=== PATIENT | female | born 2000 | race Caucasian/White ===

== ENCOUNTER 2023-08-03 05:30 | Emergency (ER) | payer OTHER, SELFPAY ==
[2023-08-03 05:42] VITALS: BP 136/75; PULSE 92; RESP 16; TEMP 36.6; O2SAT 100; BMI 18.9
--- NOTE | 2023-08-03 05:44 | ED_ITS ---
HPI - General Adult General Chief complaint: Abdominal Pain Stated complaint: abd pain Time Seen by Provider: 08/03/23 05:44 History of Present Illness HPI narrative: 23-year-old woman with a history of tachycardia for which she takes a beta- booker daily presents with 4 days of left lower quadrant/pelvic pain. Over the last 2 days she is had waves of colicky type pain that has been described as a 07/28. She would another similar episode this morning that resolved shortly prior to arrival in the emergency department. She has a Nexplanon implant so has somewhat irregular menses. Has not had a period recently. She is not having dysuria. She notes slight increase in white vaginal non odorous discharge. She describes no vaginal itching. Low risk for sexually transmitted infections. Pain is not influenced after a bowel movement. She is not been vomiting. She is not complaining specifically of upper abdominal or flank pain. Related Data Allergies Allergy/AdvReac Type Severity Reaction Status Date / Time No Known Drug Allergies Allergy Verified 08/03/23 05:47 Review of Systems Review of Systems Narrative: Pertinent positive and negative findings as per HPI Patient History Medical History (Updated 08/03/23 @ 06:47 by Adela Howell MD) Tachycardia Exam Initial Vital Signs Initial Vital Signs: General: Healthy appearing, in no acute distress. Able to give a complete and coherent history. Well-nourished well-developed HEENT: Moist mucous membranes, normal sclera with reactive pupils, Respiratory: Lungs are clear to auscultation, no wheezing no rales no rhonchi. Full and symmetrical air movement Cardiac: Regular rate and rhythm no murmurs no bruits Abdomen: Soft, slightly tender in the left lower quadrant without rebound or guarding, good bowel tones, no flank pain Pelvic exam: Normal external genitalia, no abnormal vesicles, irritation or obvious vaginal discharge. No tenderness at the vaginal introitus. Midposition 6 week size uterus with normal adnexa bilaterally she has no cervical motion tenderness. Skin: Warm and dry, no rashes Psych: Cooperative, appropriate insight and affect Medical Decision Making [facility] Narrative Medical decision making narrative: CC: Left lower quadrant/pelvic pain Complicating co-morbidities: History of tachycardia Data collected from: patient, Differential considered: Sexually transmitted infection, yeast infection, urinary tract infection, pyelonephritis, nephrolithiasis, pelvic inflammatory disease, ovarian cyst Exam documented above, pertinent findings include: Unremarkable exam this morning. No cervical motion tenderness minimal vaginal discharge slight te nderness in the left lower quadrant without rebound or guarding Lab Test results independently reviewed as above. Pertinent findings: CBC is unremarkable Chemistries are reassuring Urine dip is unremarkable Urine test is negative Imaging studies independently reviewed: CT KUB shows normal kidneys and uterus. 4.8 x 3.2 x 3.5 left ovarian cyst that is described as a modestly hypodense, noncalcified, well-circumscribed smoothly marginated structure, minimal free fluid. Also notable amount of stool throughout the colon US: left ovarian cyst with no evidence torsion. No significant free fluid. Re-evaluations: On re-evaluation pain is adequately controlled at this point. She did take 3 [id number] Aleve just prior to arrival which clearly has been effective. Discussion: 23-year-old woman with intermittent left pelvic/adnexal pain for the last week. She has a 5 cm ovarian cyst she does have a Nexplanon in place. Does not appear to be a complex cyst nor does it appear ruptured and there is no evidence of ovarian torsion. Will discharge her home and have her follow-up with OBGYN. Discussed continued use of Aleve as needed. She declines any narcotics. She recognizes the need for MiraLax dosing when she gets home today. Questions are answered and she is safe for discharge Discharge Plan Departure Patient Disposition: Home Clinical Impression: Ovarian cyst Qualifiers: Laterality: left Qualified Code(s): N83.202 - Unspecified ovarian cyst, left side Constipation Qualifiers: Constipation type: unspecified constipation type Qualified Code(s): K59.00 - Constipation, unspecified Instructions: DI for Ovarian Cyst, DI for Constipation Activity Restrictions/Additional Instructions: Thank you for coming in today You have a almost 5 cm left ovarian cyst that I believe is causing your pain. It is not a complicated cyst, there is no evidence of bleeding or cyst rupture. There is no evidence of the ovary twisting on itself and losing blood flow. Treatment for this is nonsteroidals. As you have had luck with using a leave I would recommend to leave in the morning to leave at night and Tylenol during the day if you have additional pain. Frequently ovarian cysts will resolve spontaneously. I am going to recommend that you contact our OBGYN clinic the phone number is [phone] explain that you are in the emergency department diagnosed with an ovarian cyst and need follow-up appointment within the next few weeks. You do have a fairly significant amount of stool noted on the CT scan. I would recommend MiraLax for the next couple of days. If you find that you are getting worse or develop any new symptoms, please feel free to return to the emergency department for further evaluation. Referrals: ProviderAbimael [Primary Care Provider] - Stand Alone Forms: Patient Portal/API
--- NOTE | 2023-08-03 05:58 | DI.CT.S_ITS ---
PROCEDURE: CT KIDNEY URETER BLADDER (KUB) INDICATIONS: left pelvic/LLQ pain, TECHNIQUE: Axial sections were acquired from the lung bases to the pubic symphysis. Coronal and sagittal reformats were performed. For radiation dose reduction, the following was used: automated exposure control, adjustment of mA and/or kV according to patient size. COMPARISON: None. FINDINGS: Image quality: Excellent. Lung bases: Unremarkable. Heart: No significant findings. URINARY: Right Kidney: No stones or hydronephrosis. Right Ureter: No hydroureter. Left Kidney: No stones or hydronephrosis. Left Ureter: No hydroureter. Bladder: Normal wall thickness. No stones. ABDOMEN: Liver: Unremarkable. Gallbladder: Unremarkable. Biliary ducts: Unremarkable. Pancreas: Unremarkable. Spleen: Unremarkable. Adrenal Glands: Unremarkable. Stomach and Bowel: Stomach, small bowel loops, and colon are unremarkable. Peritoneum: No abnormal intraperitoneal fluid. No free air. Ventral Wall: No hernia. Abdominal Nodes: No enlarged retroperitoneal or mesenteric lymph nodes. Vessels: Aorta and inferior vena cava are normal in size. PELVIS: Pelvic Organs: Left ovarian cystic lesion measuring 5.3 x 3.5 centimeters. Pelvic Nodes: Unremarkable. Miscellaneous: No inguinal hernias are seen. Bones: Unremarkable. IMPRESSION: Left ovarian cystic lesion measuring 3.5 x 5.3 centimeters. Given left lower quadrant pain, recommend pelvic ultrasound. Agree with preliminary report. Dictated by: Haroldo Flor M.D. on 08/03/2023 at 8:05 Approved by: Haroldo Flor M.D. on 08/03/2023 at 8:12
[2023-08-03 06:09] LABS: Add Manual Diff / Slide Review NO; Basophils Absolute Auto 100 /uL (0-100); Basophils Percent Auto 0.5 % (0-2); Eosinophils Absolute Auto 200 /uL (0-450); Eosinophils Percent Auto 1.5 % (2-4); Hematocrit 42.1 % (36-46); Hemoglobin 14.4 g/dL (12.0-16.0); Lymphocytes Absolute Auto 4300 /uL (1100-4500); Lymphocytes Percent Auto 39.4 % (25-40); Mean Corpuscular HGB Conc 34.1 % (30-36); Monocytes Absolute Auto 700 /uL (0-900); Monocytes Percent Auto 6.4 % (3-14); Neutrophils Absolute Auto 5700 /uL (1500-7000); Neutrophils Percent Auto 52.2 % (50-75); Platelet Count 264 X10^3/uL (150-400); Red Blood Cell Count 4.78 X10^6/uL (4.0-5.2); Red Cell Distribution Width 13.7 % (11.6-14.8); White Blood Cell Count 10.9 X10^3/uL (4.5-11.0)
[2023-08-03 06:28] LABS: Alanine Aminotransferase 19 IU/L (<35); Albumin 4.6 g/dL (3.5-5.0); Albumin Globulin Ratio 1.6 (1.0-2.8); Alkaline Phosphatase 54 U/L (38-126); Aspartate Aminotransferase 32 IU/L (14-36); BUN Creatinine Ratio 12.5 (6-22); Bilirubin Total 0.5 mg/dL (0.2-1.3); Blood Urea Nitrogen 8 mg/dL (7-17); Calcium 9.7 mg/dL (8.4-10.2); Carbon Dioxide 23 mmol/L (22-32); Chloride 105 mmol/L (98-107); Estimated Glomerular Filt Rate > 60 mL/min (>60); Globulin 2.9 g/dL (1.7-4.1); Glucose 92 mg/dL (70-100); Sodium 136 mmol/L (137-145); Total Protein 7.5 g/dL (6.3-8.2)
--- NOTE | 2023-08-03 06:29 | DI.US.S_ITS ---
PROCEDURE: US PELVIC COMPLETE INDICATIONS: LEFT LOWER QUADRANT PAIN ? OVARIAN CYST VS TORSION? TECHNIQUE: Real-time scanning was performed of the pelvic organs, with image documentation. Additional endovaginal scanning was necessary due to incomplete visualization of the adnexal and endometrial structures by transabdominal scanning. Color and spectral Doppler of the ovaries was performed. COMPARISON: None. FINDINGS: Uterus: Uterus is retroverted and normal in size at 6.8 x 3.3 x 4.2 cm. The myometrium is homogeneous. The endometrium measures 5 mm combined thickness. Ovaries: The right ovary measures 2.9 x 2.2 x 3.4 cm, with a calculated ovarian volume of 11 cc. The left ovary measures 4.2 x 3.1 x 4.8 cm, with a calculated ovarian volume of 33 cc. Simple left ovarian cyst measuring 3.6 x 2.6 x 4.2 centimeters; peripheral follicles seen within the ovarian stroma. Less than 12 follicles can be seen in each ovary. No adnexal masses are seen. Patent arterial waveforms. Other: No pathologic free abdominal or pelvic fluid. IMPRESSION: Simple left ovarian cystic lesion measuring 3.6 x 2.6 x 4.2 centimeters. Peripheral follicles seen within the ovarian stroma. Patent arterial waveform. Differential includes symptomatic cyst versus intermittent torsion. 6-12 week follow-up is recommended with pelvic ultrasound. We strive to produce accurate, complete, and clear reports of imaging services. To assist us in improving patient care, this report was composed using standard report templates and voice recognition software. Therefore, it may contain abnormal punctuation, insertions and/or omissions. Occasional wrong-word or sound-alike substitutions may occur. Though we review the report and make efforts to correct it, we do recommend that the report be read carefully in proper context to recognize any text inaccuracies. Dictated by: Haroldo Flor M.D. on 08/03/2023 at 8:12 Approved by: Haroldo Flor M.D. on 08/03/2023 at 8:15
[2023-08-03 06:41] LABS: HEMOLYSIS 80 (0-50)
[2023-08-03 06:42] LABS: Potassium 3.9 mmol/L (3.4-5.1)
[2023-08-03 07:28] VITALS: BP 108/64; PULSE 72; RESP 18; O2SAT 98
== END 2023-08-03 07:28 | disposition home or self-care (01) ==
PROVIDERS: Emergency Provider Emergency Medicine
DX: N83.202 Unspecified ovarian cyst, left side (principal); K59.00 Constipation, unspecified
CPT/HCPCS: 36415; 74176; 76830; 76856; 80053; 81003; 81025; 85025; 87220; 93975; 99283; 99284

== ENCOUNTER 2023-12-29 03:49 | Emergency (ER) | payer OTHER, SELFPAY ==
[2023-12-29 03:51] VITALS: BP 137/84; PULSE 91; RESP 18; TEMP 36.7; O2SAT 100; BMI 19.6
--- NOTE | 2023-12-29 04:10 | ED_ITS ---
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 She actually reports that they are not really palpitations she feels like her heart is beating a little bit quieter than normal she isn't feel dizzy or lightheaded. She does not feel like is her tachycardia. She reports that she is mildly short of breath does not feel like she can take a deep breath. She has not had fever or upper respiratory like symptoms she does not feel like she is ill. She denies any sort of cough. She reports that the breathing is worse at nighttime. She has not traveled anywhere she has no prior history of clotting disorder. She is really denying any sort of pain. She reports that her heart rate is just quiet Related Data Allergies Allergy/AdvReac Type Severity Reaction Status Date / Time No Known Drug Allergies Allergy Verified 12/29/23 03:56 Patient History Medical History (Updated 12/29/23 @ 05:10 by Syeda Ulloa DO) Tachycardia tobacco type: vaping alcohol intake frequency: a few times a month Substance Use Type: does not use Exam Initial Vital Signs Initial Vital Signs: Vital Signs Temperature 98.0 F 12/29/23 03:51 Pulse Rate 91 H 12/29/23 03:51 Respiratory Rate 18 12/29/23 03:51 Blood Pressure 137/84 12/29/23 03:51 Pulse Oximetry 100 12/29/23 03:51 Oxygen Delivery Method Room Air 12/29/23 03:51 GENERAL: Alert very well-appearing 23-year-old female and in no acute distress. HEENT: Head atraumatic,EOMI, pupils reactive, face symmetric, moist mucous membranes CARDIOVASCULAR: Regular rate and rhythm without murmurs, rubs or gallops. RESPIRATORY: Breath sounds equal bilaterally, no wheezes rales or rhonchi. ABDOMEN: Soft, nontender. Normoactive bowel sounds all 4 quadrants. No guarding or rebound. EXTREMITIES: Normal range of motion, no clubbing or edema. Neurovascularly intact NEUROLOGICAL: Alert and oriented x4.Normal gait and speech. Cranial nerves II through XII grossly intact. SKIN: Warm, dry, no laceration, no petechiae, no rashes or lesions. Course Orders Ordered: ED Orders 12/29/23 04:16 XR chest 1V Stat EKG-12 Lead Stat 12/29/23 04:20 Complete Blood Count AUTO DIFF Stat Comprehensive Metabolic Panel Stat D Dimer Stat Lipase Stat NT-proBNP (BNP-Adult 18+) Stat Troponin & CK Cardiac Panel Stat Vital Signs Vital signs: Vital Signs - 8 hr 12/29/23 03:51 Temperature 98.0 F Pulse Rate 91 H Respiratory Rate 18 Blood Pressure 137/84 Pulse Oximetry 100 Oxygen Delivery Method Room Air MDM - Chest Pain Lab Data 12/29/23 04:20 12/29/23 04:20 Labs: Lab Results 12/29/23 Range/Units 04:20 WBC 6.5 (4.5-11.0) X10^3/uL RBC 4.54 (4.0-5.2) X10^6/uL Hgb 13.7 (12.0-16.0) g/dL Hct 39.5 (36-46) % MCV 87.0 (80-100) fL MCH 30.2 (26-34) PG MCHC 34.7 (30-36) % RDW 13.2 (11.6-14.8) % Plt Count 263 (150-400) X10^3/uL Neut % (Auto) 41.5 L (50-75) % Lymph % (Auto) 48.6 H (25-40) % [place] % (Auto) 6.9 (3-14) % Eos % (Auto) 2.1 (2-4) % Baso % (Auto) 0.9 (0-2) % Neut # (Auto) 2700 (4815-3912) /uL Lymph # (Auto) 3200 (0037-6619) /uL [place] # (Auto) 500 (0-900) /uL Eos # (Auto) 100 (0-450) /uL Baso # (Auto) 100 (0-100) /uL D-Dimer < 215 (<500) ng/ml Sodium 141 (137-145) mmol/L Potassium 3.3 L (3.4-5.1) mmol/L Chloride 109 H (98-107) mmol/L Carbon Dioxide 24 (22-32) mmol/L BUN 12 (7-17) mg/dL Creatinine 0.64 (0.52-1.04) mg/dL Estimated GFR > 60 (>60) mL/min BUN/Creatinine Ratio 18.8 (6-22) Glucose 89 (70-100) mg/dL Calcium 10.0 (8.4-10.2) mg/dL Total Bilirubin 0.5 (0.2-1.3) mg/dL AST 26 (14-36) IU/L ALT 21 (<35) IU/L Alkaline Phosphatase 58 (38-126) U/L Total Creatine Kinase 103 (30-135) U/L Troponin I < 0.012 (0.01-0.034) ng/mL NT-Pro-B Natriuret Pep 69 (<125) pg/mL Total Protein 8.1 (6.3-8.2) g/dL Albumin 4.7 (3.5-5.0) g/dL Globulin 3.4 (1.7-4.1) g/dL Albumin/Globulin Ratio 1.4 (1.0-2.8) Lipase 211 (23-300) U/L Imaging Data Chest x-ray: Attestation: I personally reviewed and interpreted this imaging study as follows: My Impression: No acute cardiopulmonary process ECG Data Attestation: I personally reviewed and interpreted this ECG as follows: (No acute cardiopulmonary process) Interpretation: Normal sinus rhythm rate 74 MI interval 146 QRS [address] changes MDM Narrative Medical decision making narrative: Patient is healthy 23-year-old female who does have some sort of AV priya tachycardia but is currently in sinus rhythm and not tachycardic. She takes metoprolol daily. She has been on the monitor in the ED without any sort of arrhythmia. Blood work has been reviewed and overall reassuring she has a negative D-dimer low risk for pulmonary embolism. BNP is also negative he has a negative troponin. At this time I recommend she follow-up with Cardiology and may need a repeat Holter monitoring Blood work reviewed Chest x-ray reviewed EKG reviewed Discharge Plan Departure Patient Disposition: Home Clinical Impression: Heart palpitations Instructions: DI for Palpitations Activity Restrictions/Additional Instructions: *You have been diagnosed with palpitations *What to do: At this time you may require repeat Holter monitoring. However at this time blood work chest x-ray and EKG overall reassuring. 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 *Continue to take medications as directed *Follow up with your primary care provider in 2-3 days or call [phone] *Return to ER if you should have increasing dizziness palpitations shortness of breath or any new, worsening or concerning symptoms Referrals: ProviderAbimael [Primary Care Provider] - Stand Alone Forms: Patient Portal/API
--- NOTE | 2023-12-29 04:16 | DI.RAD.S_ITS ---
PROCEDURE: XR CHEST 1V INDICATIONS: chest pain TECHNIQUE: One view of the chest was acquired. COMPARISON: [facility], CT, CT KIDNEY URETER BLADDER (KUB), 08/03/2023, 6:07. FINDINGS: Surgical changes and devices: None. Lungs and pleura: Lungs are clear. No pleural effusions or pneumothorax. Mediastinum: Mediastinal contours appear normal. Heart size is normal. Bones and chest wall: No suspicious bony lesions. Minimal scoliosis. Overlying soft tissues appear unremarkable. IMPRESSION: No acute cardiopulmonary abnormality is seen. This report is concordant with the overnight preliminary interpretation. Dictated by: Alonso Lopez M.D. on 12/29/2023 at 8:16 Approved by: Alonso Lopez M.D. on 12/29/2023 at 8:18
[2023-12-29 04:30] LABS: Add Manual Diff / Slide Review NO; Basophils Absolute Auto 100 /uL (0-100); Basophils Percent Auto 0.9 % (0-2); Eosinophils Absolute Auto 100 /uL (0-450); Eosinophils Percent Auto 2.1 % (2-4); Hematocrit 39.5 % (36-46); Hemoglobin 13.7 g/dL (12.0-16.0); Lymphocytes Absolute Auto 3200 /uL (1100-4500); Lymphocytes Percent Auto 48.6 % (25-40); Mean Corpuscular HGB Conc 34.7 % (30-36); Mean Corpuscular Hemoglobin 30.2 PG (26-34); Monocytes Absolute Auto 500 /uL (0-900); Monocytes Percent Auto 6.9 % (3-14); Neutrophils Absolute Auto 2700 /uL (1500-7000); Neutrophils Percent Auto 41.5 % (50-75); Platelet Count 263 X10^3/uL (150-400); Red Blood Cell Count 4.54 X10^6/uL (4.0-5.2); Red Cell Distribution Width 13.2 % (11.6-14.8); White Blood Cell Count 6.5 X10^3/uL (4.5-11.0)
[2023-12-29 04:42] LABS: Alanine Aminotransferase 21 IU/L (<35); Albumin 4.7 g/dL (3.5-5.0); Albumin Globulin Ratio 1.4 (1.0-2.8); Alkaline Phosphatase 58 U/L (38-126); Aspartate Aminotransferase 26 IU/L (14-36); BUN Creatinine Ratio 18.8 (6-22); Bilirubin Total 0.5 mg/dL (0.2-1.3); Blood Urea Nitrogen 12 mg/dL (7-17); Carbon Dioxide 24 mmol/L (22-32); Chloride 109 mmol/L (98-107); Creatine Kinase 103 U/L (30-135); Estimated Glomerular Filt Rate > 60 mL/min (>60); Globulin 3.4 g/dL (1.7-4.1); Glucose 89 mg/dL (70-100); HEMOLYSIS < 15 (0-50); Lipase 211 U/L (23-300); Potassium 3.3 mmol/L (3.4-5.1); Sodium 141 mmol/L (137-145); Total Protein 8.1 g/dL (6.3-8.2)
[2023-12-29 04:54] LABS: D Dimer < 215 ng/ml (<500); NT-proBNP (BNP-Adult 18+) 69 pg/mL (<125); Troponin I < 0.012 ng/mL (0.01-0.034)
[2023-12-29 05:27] VITALS: BP 128/78; PULSE 74; RESP 16; O2SAT 98
== END 2023-12-29 05:28 | disposition home or self-care (01) ==
PROVIDERS: Emergency Provider Emergency Medicine
DX: R00.2 Palpitations (principal)
CPT/HCPCS: 36415; 71045; 80053; 82550; 83690; 83880; 84484; 85025; 85379; 93005; 93010; 99284